=== PATIENT | male | born 2000 | race Caucasian/White ===

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

== ENCOUNTER 2019-03-01 10:10 | Inpatient (IN) | payer BC ==
[~2019-03-01] VITALS: Ht 172.7 cm; Wt 60.7 kg
[~2019-03-01 10:10] MED LIST: ACET500C5 PO; FAMO-96 PO; ONDA4TAB8 PO
[2019-03-01 10:13] VITALS: Ht 172.7 cm; Wt 60.7 kg
[2019-03-01] MEDS ORDERED: morphine 2 MG INJ IV STA ×2 (10:36→13:07)
[2019-03-01] MEDS ORDERED: ONDANSETRON 4 MG INJ IV STA (10:41)
[2019-03-01] MEDS ORDERED: ONDANSETRON 4 MG INJ ONE (10:45)
[2019-03-01] MEDS ORDERED: SODIUM CHLORIDE 0.9% 1L BAG IV* ONE (11:00)
[2019-03-01] MEDS ORDERED: IOHEXOL 300MG/ML 150 ML BTL ONE (11:28)
[2019-03-01] MEDS ORDERED: SOD CHLORIDE 0.9% 100 ML ONE (11:28)
--- NOTE | 2019-03-01 12:26 | ERD ---
ER Documentation Chief Complaint Chief Complaint RLQ ABD PAIN SINCE THIS MORNING HPI 19-year-old male presenting the ED for right lower abdominal pain. Patient was seen by his primary care provider Dr. Ulices Hopkins this morning and he sent him to the ER for suspicious of appendicitis. Patient is presenting to the ED 8 out of 10 pain he states he has not eaten anything since last night. He stated the pain woke him up in the middle the night as a sharp stabbing pain in his right lower quadrant. Patient states he feels nauseous. The patient denies any past medical history and this is first time this is never happened. ROS All systems reviewed and are negative except as per history of present illness. Medications Home Meds Active Scripts Ondansetron Hcl* (Zofran*) 4 Mg Tablet, 4 MG PO Q8H PRN for NAUSEA AND/OR VOMITING, #30 TAB Prov:PASILABAN,CHARUAR F 06/12/18 Acetaminophen* (Tylophen*) 500 Mg Capsule, 1 CAP PO Q6H PRN for PAIN AND OR ELEVATED TEMP, #20 CAP Prov:PASILABAN,CHARUAR F 06/12/18 Famotidine* (Pepcid*) 20 Mg Tablet, 20 MG PO DAILY for 30 Days, #30 TAB Prov:PASILABAN,KLAR F 06/12/18 Reported Medications [None] No Conflict Check 05/29/10 Allergies Allergies: Coded Allergies: No Known Allergies (Verified Allergy, Mild, 03/01/19) PMhx/Soc Medical and Surgical Hx: pt denies Medical Hx History of Surgery: No Anesthesia Reaction: No Hx Neurological Disorder: No Hx Respiratory Disorders: No Hx Cardiac Disorders: No Hx Psychiatric Problems: No Hx Miscellaneous Medical Probl: No Hx Alcohol Use: No Hx Substance Use: No Hx Tobacco Use: No Smoking Status: Never smoker FmHx Family History: No diabetes, No coronary disease, No other Physical Exam Vitals Vital Signs Date Temp Pulse Resp B/P (MAP) Pulse Ox O2 O2 Flow FiO2 Time Delivery Rate 03/01/19 98.0 77 18 123/87 99 10:13 (99) Physical Exam Const: No acute distress Head: Atraumatic Eyes: Normal Conjunctiva ENT: Normal External Ears, Nose and Mouth. Neck: Full range of motion. No meningismus. Resp: Clear to auscultation bilaterally Cardio: Regular rate and rhythm, no murmurs Abd: Tender to palpation in right lower quadrant, positive McBurney's sign, normal bowel sounds, no bruising, skin discoloration, or palpable masses Result Diagram: 03/01/19 1050 03/01/19 1050 Results 24 hrs Laboratory Tests Test 03/01/19 10:50 White Blood Count 17.0 10^3/ul Red Blood Count 5.00 10^6/ul Hemoglobin 15.0 g/dl Hematocrit 43.3 % Mean Corpuscular Volume 86.6 fl Mean Corpuscular Hemoglobin 30.0 pg Mean Corpuscular Hemoglobin Concent 34.6 g/dl Red Cell Distribution Width 11.9 % Platelet Count 305 10^3/UL Mean Platelet Volume 9.3 fl Immature Granulocytes % 0.300 % Neutrophils % 89.1 % Lymphocytes % 5.6 % Monocytes % 4.8 % Eosinophils % 0.0 % Basophils % 0.2 % Nucleated Red Blood Cells % 0.0 /100WBC Immature Granulocytes # 0.050 10^3/ul Neutrophils # 15.1 10^3/ul Lymphocytes # 1.0 10^3/ul Monocytes # 0.8 10^3/ul Eosinophils # 0.0 10^3/ul Basophils # 0.0 10^3/ul Nucleated Red Blood Cells # 0.0 10^3/ul Urine Color YELLOW Urine Clarity CLEAR Urine pH 7.0 Urine Specific [place] 1.023 Urine Ketones TRACE mg/dL Urine Nitrite NEGATIVE mg/dL Urine Bilirubin NEGATIVE mg/dL Urine Urobilinogen NEGATIVE mg/dL Urine Leukocyte Esterase NEGATIVE Lottie/ul Urine Hemoglobin NEGATIVE mg/dL Urine Glucose NEGATIVE mg/dL Urine Total Protein NEGATIVE mg/dl Sodium Level 141 mmol/L Potassium Level 4.1 mmol/L Chloride Level 102 mmol/L Carbon Dioxide Level 28 mmol/L Anion Gap 11 Blood Urea Nitrogen 12 mg/dl Creatinine 0.80 mg/dl Est Glomerular Filtrat Rate mL/min > 60 mL/min Glucose Level 138 mg/dl Calcium Level 10.5 mg/dl Current Medications Medications Dose Sig/Geo Start Time Status Last (Trade) Ordered Route PRN Stop Time Admin Dose Reason Admin Morphine 2 mg ONCE STAT 03/01/19 DC 03/01/19 Sulfate IV 10:36 10:47 (morphine) 03/01/19 10:40 Sodium 1,220 ml ONCE ONCE 03/01/19 DC 03/01/19 Chloride IV* 11:00 10:47 (NS) 03/01/19 11:01 Ondansetron 2 mg ONCE STAT 03/01/19 DC 03/01/19 HCl (Zofran IV 10:41 10:53 Inj) 03/01/19 10:53 Ondansetron 4 mg STK-MED 03/01/19 DC HCl (Zofran ONCE .ROUTE 10:45 Inj) 03/01/19 10:46 IV Flush 10 ml STK-MED 03/01/19 DC 03/01/19 (NS 10 ml) ONCE .ROUTE 11:28 11:31 03/01/19 11:29 Sodium 100 ml @ ud STK-MED 03/01/19 DC 03/01/19 Chloride ONCE .ROUTE 11:28 11:32 03/01/19 11:29 Iohexol 150 ml STK-MED 03/01/19 DC 03/01/19 (Omnipaque ONCE .ROUTE 11:28 11:32 300mg/ ml) 03/01/19 11:29 Piperacillin 100 ml @ ONCE ONCE 03/01/19 DC 03/01/19 Sod/ 200 mls/hr IVPB 12:30 12:33 Tazobactam 03/01/19 12:59 Sod Morphine 2 mg ONCE STAT 03/01/19 DC 03/01/19 Sulfate IV 13:07 13:12 (morphine) 03/01/19 13:08 Sodium 1,000 ml @ Q10H IV 03/01/19 03/01/19 Chloride 100 mls/hr 13:46 14:30 IV Flush 3 ml PER 03/01/19 (NS 3 ml) PROTOCOL IV 14:00 Ondansetron 4 mg Q6H PRN 03/01/19 HCl (Zofran IV 14:00 Inj) NAUSEA/VOMITI NG 650 mg Q6H PRN 03/01/19 Acetaminophen PO .PAIN 1-3 14:00 (Tylenol OR TEMP Tab) 1 tab Q6H PRN 03/01/19 Acetaminophen PO .MOD PAIN 14:00 / 4-6 Hydrocodone Bitart ([place] (5/325)) 2 tab Q6H PRN 03/01/19 Acetaminophen PO .SEVERE 14:00 / PAIN 7-10 Hydrocodone Bitart ([place] (5/325)) Morphine 2 mg Q4H PRN 03/01/19 03/01/19 Sulfate IV .SEVERE 14:00 17:55 (morphine) PAIN 7-10 Cefazolin 50 ml @ Q8 IVPB 03/01/19 03/01/19 Sodium/ 100 mls/hr 14:00 14:40 Dextrose Procedures/MDM ED course: The patient was stable throughout the ED course. The patient and/or family informed of laboratory and diagnostic imaging results throughout the ED course. Diagnostic imaging: CT abdomen pelvis with contrast Read by radiologist Marry Dove, Physician PROCEDURE: CT Abdomen and Pelvis with contrast. CLINICAL INDICATION: Abdomen and pelvis pain. TECHNIQUE: CT scan of the abdomen and pelvis with contrast was performed. The patient was scanned following the uncomplicated intravenous administration of 100 ml of Omnipaque-300. Coronal and sagittal reformatted images were obtained from the axial source images. Images were reviewed on a high-resolution PACS workstation. Total exam DLP is 444 mGy-cm. CTDIvol is 8 mGy. One or more of the following dose reduction techniques were used: Automated exposure control, adjustment of the mA and/or kV according to patient size, use of iterative reconstruction technique. DICOM images are available. COMPARISON: None. FINDINGS: There is bilateral lung base atelectasis versus scarring. There is no pleural effusion. The liver is normal in size. There is hepatic steatosis. There is no focal hepatic lesion. The gallbladder and bile ducts are normal. The spleen is normal in size. There is no focal splenic lesion. Both adrenals are normal with no enlargement or mass. The pancreas is unremarkable with no mass or evidence of pancreatitis. Both kidneys demonstrate normal contrast enhancement. There is no renal mass or hydronephrosis. The abdominal aorta is not dilated. There is no retroperitoneal lymphadenopathy or mass. There is no pelvic lymphadenopathy or mass. The bladder and distal ureters are normal. There is a large dilated fluid filled appendix measuring up to 1.2 cm with associated surrounding fat stranding and hyperemia. There are several appendicoliths. The bowel and mesentery are normal. There is no free fluid or free gas. The osseous structures are unremarkable with no fracture or lytic lesion. IMPRESSION: Acute appendicitis with associated appendicoliths. Hepatic steatosis. No bowel obstruction. No pneumoperitoneum. These results were communicated at 12:07 p.m. on 03/01/2019 via the [facility] rad hot line. RPTAT: QQ Procedures: None Medications given in ER: Normal saline Morphine Zosyn Patient tolerated medication well with no adverse reactions. Patient reported improvement in pain. Medical decision making: Patient is 19-year-old male presenting to the ED for right lower quadrant pain. Patient was sent over by his primary care provider with concerns of appendicitis. Patient has right lower quadrant pain rates a 8 out of 10. Patient had positive McBurney's point tenderness on palpation. Patient CBC indicated leukocytosis, CT scan indicated acute appendicitis with associated appendicoliths. The patient was given a dose of morphine and Zosyn and the care was handed over to Dr. Culver and the patient is being admitted for appendicitis. Departure Diagnosis: Primary Impression: Appendicitis Appendicitis type: acute appendicitis Acute appendicitis type: unspecified acute appendicitis type Qualified Codes: K35.80 - Unspecified acute appendicitis Condition: ANTHONY Kim PA-C Mar 01, 2019 12:26
[2019-03-01] MEDS ORDERED: PIPER-TAZO 3.375 GM IV (PMX) 100 ML IVPB ONE (12:30)
[2019-03-01] MEDS ORDERED: ONDANSETRON 4 MG INJ IV PRN ×2 (14:00→14:30)
[2019-03-01] MEDS ORDERED: NACL 0.9% 3 ML SYG IV SCH (14:00)
[2019-03-01] MEDS ORDERED: ACETAMINOPHEN 325 MG TAB PO PRN ×2 (14:00→14:30)
[2019-03-01] MEDS ORDERED: HYDROCODONE/APAP (5/325) TAB PO PRN ×2 (14:00)
[2019-03-01] MEDS: SOD CHLORIDE 0.9% 1,000 ML IV SCH ×2 (14:30→23:46)
--- NOTE | 2019-03-01 14:33 | HP ---
Date/Time of Note Date/Time of Note DATE: 03/01/19 TIME: 14:12 Assessment/Plan VTE Prophylaxis Pharmacological prophylaxis: NA/contraindicated Pharm contraindication: low risk/ambulating Lines/Catheters IV [facility] Saline [facility] Assessment/Plan Hospital Course 1. Acute Appendicitis - As evident per CT abdomen - Surgeon consulted - continue on abx - continue IVF - Analgesics prn 2. Leukocytosis - secondary to #1 - on abx - antipyretics prn for fever - monitor trend Discussed POC with Dr. Glass Result Diagram: 03/01/19 1050 03/01/19 1050 Results 24hrs Laboratory Tests Test 03/01/19 10:50 White Blood Count 17.0 #H Red Blood Count 5.00 Hemoglobin 15.0 Hematocrit 43.3 Mean Corpuscular Volume 86.6 Mean Corpuscular Hemoglobin 30.0 Mean Corpuscular Hemoglobin Concent 34.6 Red Cell Distribution Width 11.9 Platelet Count 305 # Mean Platelet Volume 9.3 Immature Granulocytes % 0.300 Neutrophils % 89.1 H Lymphocytes % 5.6 L Monocytes % 4.8 Eosinophils % 0.0 Basophils % 0.2 Nucleated Red Blood Cells % 0.0 Immature Granulocytes # 0.050 H Neutrophils # 15.1 H Lymphocytes # 1.0 Monocytes # 0.8 Eosinophils # 0.0 Basophils # 0.0 Nucleated Red Blood Cells # 0.0 Urine Color YELLOW Urine Clarity CLEAR Urine pH 7.0 Urine Specific [place] 1.023 Urine Ketones TRACE A Urine Nitrite NEGATIVE Urine Bilirubin NEGATIVE Urine Urobilinogen NEGATIVE Urine Leukocyte Esterase NEGATIVE Urine Hemoglobin NEGATIVE Urine Glucose NEGATIVE Urine Total Protein NEGATIVE Sodium Level 141 Potassium Level 4.1 Chloride Level 102 Carbon Dioxide Level 28 Anion Gap 11 Blood Urea Nitrogen 12 Creatinine 0.80 Est Glomerular Filtrat Rate mL/min > 60 Glucose Level 138 Calcium Level 10.5 H HPI/ROS Admit Date/Time Admit Date/Time Hx of Present Illness This is a 19-year-old male with no reported past medical history who came to [facility] due to reports of abdominal pain. Patient did report that he ate dinner last night and with his normal state of health. He reportedly ate mSith's. He states that 2 in the morning he started to have epigastric pain that went down to his right lower abdominal quadrant. He started to have nausea and reported vomiting. No reported hematemesis. No diarrhea. Denies any fevers. As such she went to the hospital for further evaluation. He did abdominal CT scan that did show acute appendicitis with associated appendicoliths. No bowel obstruction. No pneumoperitoneum. Hepatic steatosis was seen. He did have a white blood cell count of 17.0. Afebrile at present. Patient did receive analgesic medication in the ER. Reports pain is 3-5 out of 10. Reports less pain. Noted with McBurney point tenderness. We will evaluate him for the aformentiond issues. ROS 12 point review of systems obtained entirely negative except as mentioned in the history of present illness PMH/Family/Social Past Medical History Medical/surgical history 1. Denies Medications Current Medications Sodium Chloride 1,000 ml @ 100 mls/hr Q10H IV ; Start 03/01/19 at 13:46; Status UNV IV Flush (NS 3 ml) 3 ml PER PROTOCOL IV ; Start 03/01/19 at 14:00; Status UNV Ondansetron HCl (Zofran Inj) 4 mg Q6H PRN IV NAUSEA/VOMITING; Start 03/01/19 at 14:00; Status UNV Acetaminophen (Tylenol Tab) 650 mg Q6H PRN PO .PAIN 1-3 OR TEMP; Start 03/01/19 at 14:00; Status UNV Acetaminophen/ Hydrocodone Bitart ([place] (5/325)) 1 tab Q6H PRN PO .MOD PAIN 4- 6; Start 03/01/19 at 14:00; Status UNV Acetaminophen/ Hydrocodone Bitart ([place] (5/325)) 2 tab Q6H PRN PO .SEVERE PAIN 7-10; Start 03/01/19 at 14:00; Status UNV Morphine Sulfate (morphine) 2 mg Q4H PRN IV .SEVERE PAIN 7-10; Start 03/01/19 at 14:00; Status UNV Famotidine (Pepcid Iv) 20 mg Q12 IV ; Start 03/01/19 at 21:00; Status UNV Cefazolin Sodium/ Dextrose 50 ml @ 100 mls/hr Q8 IVPB ; Start 03/01/19 at 14:00; Status UNV Ondansetron HCl (Zofran Inj) 4 mg BRIDGE ORDER PRN IV NAUSEA/VOMITING; Start 03/01/19 at 14:30; Stop 03/02/19 at 14:29 Acetaminophen (Tylenol Tab) 650 mg ER BRIDGE PRN PO .MILD PAIN 1-3 OR TEMP; Start 03/01/19 at 14:30; Stop 03/02/19 at 14:29 Coded Allergies: No Known Allergies (Verified Allergy, Mild, 03/01/19) Family History Significant Family History: other (History of appendicitis on mother side) Social History Alcohol Use: none Smoking Status: Never smoker Drug Use: none Exam/Review of Systems Vital Signs Vitals Vital Signs Date Temp Pulse Resp B/P (MAP) Pulse Ox O2 O2 Flow FiO2 Time Delivery Rate 03/01/19 98.0 77 18 123/87 99 10:13 (99) Exam Constitutional: alert, oriented Psych: nl mood/affect Head: normocephalic Neck: supple, non-tender Respiratory: clear to auscultation Cardiovascular: regular rate and rhythm Gastrointestinal: soft, tender Musculoskeletal: nl extremities to inspection Neurological: [employer] II-XII intact, nl mental status, nl speech REGIDORMELISSA NP Mar 01, 2019 14:22
[2019-03-01] MEDS: CEFAZOLIN 2 GM/50 ML (PMX) 50 ML IVPB SCH ×2 (14:40→22:44)
[2019-03-01 14:45] VITALS: BP 117/57; PULSE 83; RESP 16
[2019-03-01] MEDS: morphine 2 MG INJ IV PRN ×2 (17:55→22:25)
[2019-03-01 19:58] VITALS: BP 117/55; PULSE 113; RESP 19
[2019-03-01] MEDS: FAMOTIDINE 20 MG INJ IV SCH (21:29)
[2019-03-02] VITALS (24 sets, daily range): BP systolic 104–124; BP diastolic 45–72; PULSE 74–112; RESP 14–19
[2019-03-02] MEDS ORDERED: ACETAMINOPHEN 1000MG/100ML IV 100 ML IVPB ONE
--- NOTE | 2019-03-02 00:28 | CONS ---
Assessment/Plan Assessment/Plan Assessment/Plan (Daily) Signs and symptoms consistent with acute appendicitis without evidence of abscess or rupture her graph recommendation keep patient n.p.o. IV fluids IV antibiotics. Recommendation for urgent laparoscopic appendectomy soon as or time can be arranged. If or time cannot be arranged tonight then we will proceed tomorrow. If surgery is tomorrow Dr. Coombs will assume care. Consultation Date/Type/Reason Admit Date/Time Date of Consultation: Mar 01, 2019 Type of Consult General surgery Reason for Consultation Abdominal pain suspicious for appendicitis Requesting Provider: MELISSA WHEATLEY NP Date/Time of Note DATE: 03/02/19 TIME: 00:22 Hx of Present Illness Patient presented to the emergency room after acute onset of abdominal pain at 2:00 in the morning patient denies any similar symptoms to this in the past. He had periumbilical epigastric and right lower quadrant abdominal pain which increased over the ensuing several hours In the ER evaluation with imaging evaluation and physical and labs revealed white blood cell count of 17,000 CAT scan consistent with appendicitis with a 1.2 cm appendix with multiple appendicoliths. No evidence of abscess . Patient denies any other significant past medical or surgical history Past Medical History Home Meds Active Scripts Ondansetron Hcl* (Zofran*) 4 Mg Tablet, 4 MG PO Q8H PRN for NAUSEA AND/OR VOMITING, #30 TAB Prov:KAROL FOSTER F 06/12/18 Acetaminophen* (Tylophen*) 500 Mg Capsule, 1 CAP PO Q6H PRN for PAIN AND OR ELEVATED TEMP, #20 CAP Prov:KAROL FOSTER F 06/12/18 Famotidine* (Pepcid*) 20 Mg Tablet, 20 MG PO DAILY for 30 Days, #30 TAB Prov:CHARU FOSTERAR F 06/12/18 Reported Medications [None] No Conflict Check 05/29/10 Medications Current Medications Sodium Chloride 1,000 ml @ 100 mls/hr Q10H IV Last administered on 03/01/19at 14:30; Admin Dose 100 MLS/HR; Start 03/01/19 at 13:46 IV Flush (NS 3 ml) 3 ml PER PROTOCOL IV ; Start 03/01/19 at 14:00 Ondansetron HCl (Zofran Inj) 4 mg Q6H PRN IV NAUSEA/VOMITING; Start 03/01/19 at 14:00 Acetaminophen (Tylenol Tab) 650 mg Q6H PRN PO .PAIN 1-3 OR TEMP; Start 03/01/19 at 14:00 Acetaminophen/ Hydrocodone Bitart ([place] (5/325)) 1 tab Q6H PRN PO .MOD PAIN 4- 6; Start 03/01/19 at 14:00 Acetaminophen/ Hydrocodone Bitart ([place] (5/325)) 2 tab Q6H PRN PO .SEVERE PAIN 7-10; Start 03/01/19 at 14:00 Morphine Sulfate (morphine) 2 mg Q4H PRN IV .SEVERE PAIN 7-10 Last administered on 03/01/19at 22:25; Admin Dose 2 MG; Start 03/01/19 at 14:00 Famotidine (Pepcid Iv) 20 mg Q12 IV Last administered on 03/01/19at 21:29; Admin Dose 20 MG; Start 03/01/19 at 21:00 Cefazolin Sodium/ Dextrose 50 ml @ 100 mls/hr Q8 IVPB Last administered on 03/01/19at 22:44; Admin Dose 100 MLS/HR; Start 03/01/19 at 14:00 Allergies: Coded Allergies: No Known Allergies (Verified Allergy, Mild, 03/01/19) Social History Alcohol Use: none Smoking Status: Never smoker Drug Use: none Exam/Review of Systems Exam Vitals Vital Signs Date Temp Pulse Resp B/P (MAP) Pulse Ox O2 O2 Flow FiO2 Time Delivery Rate 03/01/19 100.2 113 19 117/55 95 19:58 (75) 03/01/19 Room Air 14:37 Intake and Output 03/01/19 03/01/19 03/02/19 1414:59 22:59 06:59 IntakeIntake Total 2540 ml 450 ml BalanceBalance 2540 ml 450 ml Exam Patient complaining of right lower quadrant abdominal pain which is worsened over the previous several hours lungs clear to auscultation. Heart regular rate and rhythm normal S1-S2 Abdomen soft nondistended marked tenderness right lower quadrant Results Result Diagram: 03/01/19 1050 03/01/19 1050 Results 24hrs Laboratory Tests Test 03/01/19 10:50 White Blood Count 17.0 #H Red Blood Count 5.00 Hemoglobin 15.0 Hematocrit 43.3 Mean Corpuscular Volume 86.6 Mean Corpuscular Hemoglobin 30.0 Mean Corpuscular Hemoglobin Concent 34.6 Red Cell Distribution Width 11.9 Platelet Count 305 # Mean Platelet Volume 9.3 Immature Granulocytes % 0.300 Neutrophils % 89.1 H Lymphocytes % 5.6 L Monocytes % 4.8 Eosinophils % 0.0 Basophils % 0.2 Nucleated Red Blood Cells % 0.0 Immature Granulocytes # 0.050 H Neutrophils # 15.1 H Lymphocytes # 1.0 Monocytes # 0.8 Eosinophils # 0.0 Basophils # 0.0 Nucleated Red Blood Cells # 0.0 Urine Color YELLOW Urine Clarity CLEAR Urine pH 7.0 Urine Specific [place] 1.023 Urine Ketones TRACE A Urine Nitrite NEGATIVE Urine Bilirubin NEGATIVE Urine Urobilinogen NEGATIVE Urine Leukocyte Esterase NEGATIVE Urine Hemoglobin NEGATIVE Urine Glucose NEGATIVE Urine Total Protein NEGATIVE Sodium Level 141 Potassium Level 4.1 Chloride Level 102 Carbon Dioxide Level 28 Anion Gap 11 Blood Urea Nitrogen 12 Creatinine 0.80 Est Glomerular Filtrat Rate mL/min > 60 Glucose Level 138 Calcium Level 10.5 H Medications Medication Current Medications Sodium Chloride 1,000 ml @ 100 mls/hr Q10H IV Last administered on 03/01/19at 14:30; Admin Dose 100 MLS/HR; Start 03/01/19 at 13:46 IV Flush (NS 3 ml) 3 ml PER PROTOCOL IV ; Start 03/01/19 at 14:00 Ondansetron HCl (Zofran Inj) 4 mg Q6H PRN IV NAUSEA/VOMITING; Start 03/01/19 at 14:00 Acetaminophen (Tylenol Tab) 650 mg Q6H PRN PO .PAIN 1-3 OR TEMP; Start 03/01/19 at 14:00 Acetaminophen/ Hydrocodone Bitart ([place] (5/325)) 1 tab Q6H PRN PO .MOD PAIN 4- 6; Start 03/01/19 at 14:00 Acetaminophen/ Hydrocodone Bitart ([place] (5/325)) 2 tab Q6H PRN PO .SEVERE PAIN 7-10; Start 03/01/19 at 14:00 Morphine Sulfate (morphine) 2 mg Q4H PRN IV .SEVERE PAIN 7-10 Last administered on 03/01/19at 22:25; Admin Dose 2 MG; Start 03/01/19 at 14:00 Famotidine (Pepcid Iv) 20 mg Q12 IV Last administered on 03/01/19at 21:29; Admin Dose 20 MG; Start 03/01/19 at 21:00 Cefazolin Sodium/ Dextrose 50 ml @ 100 mls/hr Q8 IVPB Last administered on 03/01/19at 22:44; Admin Dose 100 MLS/HR; Start 03/01/19 at 14:00 SIERRA WHITLEY MD Mar 02, 2019 00:28
[2019-03-02] MEDS: SOD CHLORIDE 0.9% 1,000 ML IV SCH ×2 (01:37→09:46)
[2019-03-02] MEDS: CEFAZOLIN 2 GM/50 ML (PMX) 50 ML IVPB SCH ×2 (06:09→15:36)
--- NOTE | 2019-03-02 08:33 | PREAC ---
Date/Time of Note Date/Time of Note DATE: 03/02/19 TIME: 08:32 Anesthesia Eval and Record Evaluation Time Pre-Procedure Interview DATE: 03/02/19 TIME: 08:32 Age 19 Sex male NPO: 8 hrs Preoperative diagnosis acute appendicitis Planned procedure laparoscopic appendectomy Past Medical History Past Medical History: None Surgery & Anesthesia Issues No known issue Meds Anticoagulation: No Beta Wanda within 24 hr: No Reason Beta Wanda not given: Pt. not on B-Wanda Active Scripts Ondansetron Hcl* (Zofran*) 4 Mg Tablet, 4 MG PO Q8H PRN for NAUSEA AND/OR VOMITING, #30 TAB Prov:KINILABANKAROL F 06/12/18 Acetaminophen* (Tylophen*) 500 Mg Capsule, 1 CAP PO Q6H PRN for PAIN AND OR ELEVATED TEMP, #20 CAP Prov:KINILABANKAROL F 06/12/18 Famotidine* (Pepcid*) 20 Mg Tablet, 20 MG PO DAILY for 30 Days, #30 TAB Prov:KAROL FOSTER F 06/12/18 Reported Medications [None] No Conflict Check 05/29/10 Current Medications Sodium Chloride 1,000 ml @ 100 mls/hr Q10H IV Last administered on 03/02/19at 01:37; Admin Dose 100 MLS/HR; Start 03/01/19 at 13:46 IV Flush (NS 3 ml) 3 ml PER PROTOCOL IV ; Start 03/01/19 at 14:00 Ondansetron HCl (Zofran Inj) 4 mg Q6H PRN IV NAUSEA/VOMITING; Start 03/01/19 at 14:00 Acetaminophen (Tylenol Tab) 650 mg Q6H PRN PO .PAIN 1-3 OR TEMP; Start 03/01/19 at 14:00 Acetaminophen/ Hydrocodone Bitart ([place] (5/325)) 1 tab Q6H PRN PO .MOD PAIN 4- 6; Start 03/01/19 at 14:00 Acetaminophen/ Hydrocodone Bitart ([place] (5/325)) 2 tab Q6H PRN PO .SEVERE PAIN 7-10; Start 03/01/19 at 14:00 Morphine Sulfate (morphine) 2 mg Q4H PRN IV .SEVERE PAIN 7-10 Last administered on 03/01/19at 22:25; Admin Dose 2 MG; Start 03/01/19 at 14:00 Famotidine (Pepcid Iv) 20 mg Q12 IV Last administered on 03/01/19at 21:29; Admin Dose 20 MG; Start 03/01/19 at 21:00 Cefazolin Sodium/ Dextrose 50 ml @ 100 mls/hr Q8 IVPB Last administered on 03/02/19at 06:09; Admin Dose 100 MLS/HR; Start 03/01/19 at 14:00 Meds reviewed: Yes Allergies Coded Allergies: No Known Allergies (Verified Allergy, Mild, 03/01/19) Allergies Reviewed: Yes Labs/Studies Labs Reviewed: Reviewed by anesthesiologist Result Diagram: 03/02/19 02103/02/19 021 Laboratory Tests 03/02/19 02:10 test: N/A Pre-procedure Exam Last vitals Vital Signs Date Temp Pulse Resp B/P (MAP) Pulse Ox O2 O2 Flow FiO2 Time Delivery Rate 03/02/19 98.6 94 16 115/61 100 08:00 (79) 03/02/19 Room Air 01:01 Airway: Adequate mouth opening, Adequate thyromental dist Mallampati: Mallampati II Teeth: Normal Lung: Normal Heart: Normal ASA Physical Status ASA physical status: 2 Emergency: None Planned Anesthetic General/MAC: ETT Nerve block: TAP (bilateral) Planned Pain Management Parenteral pain med, Local by surgeon Pre-operative Attestations Prior to commencing anesthesia and surgery, the patient was re-evaluated, there was verification of: *The patient's identity *The results of appropriate recent lab work and preoperative vital signs *The above evaluation not changing prior to induction *Anesthetic plan, risk benefits, alternative and complications discussed with patient/family; questions answered; patient/family understands, accepts and wishes to proceed. FAB DORADO MD Mar 02, 2019 08:33
[2019-03-02] MEDS ORDERED: MAGNESIUM SULFATE 3 GM in DEXTROSE 5% 100 ML IVPB ONE (09:00)
--- NOTE | 2019-03-02 09:09 | PN ---
Date/Time of Note Date/Time of Note DATE: 03/02/19 TIME: 09:07 Assessment/Plan VTE Prophylaxis SCD applied (from Nsg): No SCD contraindicated: low risk/ambulating Pharmacological prophylaxis: NA/contraindicated Pharm contraindication: low risk/ambulating Lines/Catheters IV C[facility]ter Type (from [facility]): Peripheral IV Assessment/Plan Hospital Course 1. Acute Appendicitis - As evident per CT abdomen - Surgeon consulted - continue on abx - continue IVF - Analgesics prn - Plan for surgery today 2. Leukocytosis - secondary to #1 - on abx - antipyretics prn for fever - monitor trend Disposition and plan. Still noted with right lower abdominal pain. Continue with antibiotics. Plan for appendectomy today. Follow-up with surgeon recommendations. Monitor in-house. Discussed POC with Dr. Glass Result Diagram: 03/02/190 03/02/19 0210 Results 24hrs Laboratory Tests Test 03/01/19 10:50 03/02/19 02:10 White Blood Count 17.0 #H 21.6 #H Red Blood Count 5.00 4.32 L Hemoglobin 15.0 13.2 L Hematocrit 43.3 37.6 L Mean Corpuscular Volume 86.6 87.0 Mean Corpuscular Hemoglobin 30.0 30.6 Mean Corpuscular Hemoglobin Concent 34.6 35.1 Red Cell Distribution Width 11.9 12.0 Platelet Count 305 # 242 # Mean Platelet Volume 9.3 9.4 Immature Granulocytes % 0.300 0.700 H Neutrophils % 89.1 H 83.6 H Lymphocytes % 5.6 L 6.8 L Monocytes % 4.8 8.8 Eosinophils % 0.0 0.0 Basophils % 0.2 0.1 Nucleated Red Blood Cells % 0.0 0.0 Immature Granulocytes # 0.050 H 0.160 H Neutrophils # 15.1 H 18.0 H Lymphocytes # 1.0 1.5 Monocytes # 0.8 1.9 H Eosinophils # 0.0 0.0 Basophils # 0.0 0.0 Nucleated Red Blood Cells # 0.0 0.0 Urine Color YELLOW Urine Clarity CLEAR Urine pH 7.0 Urine Specific [place] 1.023 Urine Ketones TRACE A Urine Nitrite NEGATIVE Urine Bilirubin NEGATIVE Urine Urobilinogen NEGATIVE Urine Leukocyte Esterase NEGATIVE Urine Hemoglobin NEGATIVE Urine Glucose NEGATIVE Urine Total Protein NEGATIVE Sodium Level 141 139 Potassium Level 4.1 3.4 L Chloride Level 102 105 Carbon Dioxide Level 28 24 Anion Gap 11 10 Blood Urea Nitrogen 12 10 Creatinine 0.80 0.73 Est Glomerular Filtrat Rate mL/min > 60 > 60 Glucose Level 138 116 Calcium Level 10.5 H 8.9 Hemoglobin A1c 5.2 Lactic Acid Level 0.9 Phosphorus Level 4.1 Magnesium Level 1.4 L Total Bilirubin 0.9 Direct Bilirubin 0.00 Indirect Bilirubin 0.9 Aspartate Amino Transf (AST/SGOT) 26 Alanine Aminotransferase (ALT/SGPT) 26 Alkaline Phosphatase 47 Total Protein 6.8 Albumin 3.7 Globulin 3.10 Albumin/Globulin Ratio 1.19 Triglycerides Level 39 Cholesterol Level 117 LDL Cholesterol, Calculated 66 HDL Cholesterol 43 Cholesterol/HDL Ratio 2.7 Thyroid Stimulating Hormone (TSH) 0.404 L Free Thyroxine Index 2.14 Thyroxine (T4) 5.6 Triiodothyronine (T3) Uptake 38.3 Subjective 24 Hr Interval Summary Free Text/Dictation patient reports pain on RLQ with movement. no further reports of nausea. 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 intact, nl mental status, nl speech Results Results 24hrs Laboratory Tests Test 03/01/19 10:50 03/02/19 02:10 White Blood Count 17.0 #H 21.6 #H Red Blood Count 5.00 4.32 L Hemoglobin 15.0 13.2 L Hematocrit 43.3 37.6 L Mean Corpuscular Volume 86.6 87.0 Mean Corpuscular Hemoglobin 30.0 30.6 Mean Corpuscular Hemoglobin Concent 34.6 35.1 Red Cell Distribution Width 11.9 12.0 Platelet Count 305 # 242 # Mean Platelet Volume 9.3 9.4 Immature Granulocytes % 0.300 0.700 H Neutrophils % 89.1 H 83.6 H Lymphocytes % 5.6 L 6.8 L Monocytes % 4.8 8.8 Eosinophils % 0.0 0.0 Basophils % 0.2 0.1 Nucleated Red Blood Cells % 0.0 0.0 Immature Granulocytes # 0.050 H 0.160 H Neutrophils # 15.1 H 18.0 H Lymphocytes # 1.0 1.5 Monocytes # 0.8 1.9 H Eosinophils # 0.0 0.0 Basophils # 0.0 0.0 Nucleated Red Blood Cells # 0.0 0.0 Urine Color YELLOW Urine Clarity CLEAR Urine pH 7.0 Urine Specific [place] 1.023 Urine Ketones TRACE A Urine Nitrite NEGATIVE Urine Bilirubin NEGATIVE Urine Urobilinogen NEGATIVE Urine Leukocyte Esterase NEGATIVE Urine Hemoglobin NEGATIVE Urine Glucose NEGATIVE Urine Total Protein NEGATIVE Sodium Level 141 139 Potassium Level 4.1 3.4 L Chloride Level 102 105 Carbon Dioxide Level 28 24 Anion Gap 11 10 Blood Urea Nitrogen 12 10 Creatinine 0.80 0.73 Est Glomerular Filtrat Rate mL/min > 60 > 60 Glucose Level 138 116 Calcium Level 10.5 H 8.9 Hemoglobin A1c 5.2 Lactic Acid Level 0.9 Phosphorus Level 4.1 Magnesium Level 1.4 L Total Bilirubin 0.9 Direct Bilirubin 0.00 Indirect Bilirubin 0.9 Aspartate Amino Transf (AST/SGOT) 26 Alanine Aminotransferase (ALT/SGPT) 26 Alkaline Phosphatase 47 Total Protein 6.8 Albumin 3.7 Globulin 3.10 Albumin/Globulin Ratio 1.19 Triglycerides Level 39 Cholesterol Level 117 LDL Cholesterol, Calculated 66 HDL Cholesterol 43 Cholesterol/HDL Ratio 2.7 Thyroid Stimulating Hormone (TSH) 0.404 L Free Thyroxine Index 2.14 Thyroxine (T4) 5.6 Triiodothyronine (T3) Uptake 38.3 Medications Medication Current Medications Sodium Chloride 1,000 ml @ 100 mls/hr Q10H IV Last administered on 03/02/19at 01:37; Admin Dose 100 MLS/HR; Start 03/01/19 at 13:46 IV Flush (NS 3 ml) 3 ml PER PROTOCOL IV ; Start 03/01/19 at 14:00 Ondansetron HCl (Zofran Inj) 4 mg Q6H PRN IV NAUSEA/VOMITING; Start 03/01/19 at 14:00 Acetaminophen (Tylenol Tab) 650 mg Q6H PRN PO .PAIN 1-3 OR TEMP; Start 03/01/19 at 14:00 Acetaminophen/ Hydrocodone Bitart ([place] (5/325)) 1 tab Q6H PRN PO .MOD PAIN 4- 6; Start 03/01/19 at 14:00 Acetaminophen/ Hydrocodone Bitart ([place] (5/325)) 2 tab Q6H PRN PO .SEVERE PAIN 7-10; Start 03/01/19 at 14:00 Morphine Sulfate (morphine) 2 mg Q4H PRN IV .SEVERE PAIN 7-10 Last administered on 03/01/19at 22:25; Admin Dose 2 MG; Start 03/01/19 at 14:00 Famotidine (Pepcid Iv) 20 mg Q12 IV Last administered on 03/01/19at 21:29; Admin Dose 20 MG; Start 03/01/19 at 21:00 Cefazolin Sodium/ Dextrose 50 ml @ 100 mls/hr Q8 IVPB Last administered on 03/02/19at 06:09; Admin Dose 100 MLS/HR; Start 03/01/19 at 14:00 Magnesium Sulfate 3 gm/Dextrose 106 ml @ 35.333 mls/ hr ONCE ONCE IVPB ; Start 03/02/19 at 09:00; Stop 03/02/19 at 11:59 MELISSA WHEATLEY NP Mar 02, 2019 09:09
[2019-03-02] MEDS: FAMOTIDINE 20 MG INJ IV SCH ×2 (09:23→21:00)
[2019-03-02] MEDS ORDERED: BUPIVACAINE 0.25%/EPI (SDV) 30 ML INJ ONE (11:41)
[2019-03-02] MEDS ORDERED: PROPOFOL 20 ML ONE (11:49)
[2019-03-02] MEDS ORDERED: SUCCINYLCHOLINE CHLORIDE 100 MG/5 ML SYG IV ONE (11:49)
[2019-03-02] MEDS ORDERED: ROCURONIUM 50 MG INJ ONE (11:49)
[2019-03-02] MEDS ORDERED: MIDAZOLAM 1 MG/ML 2 ML INJ ONE (11:49)
[2019-03-02] MEDS ORDERED: LIDOCAINE 2% (SDV) 5 ML INJ ONE (11:49)
[2019-03-02] MEDS ORDERED: FENTAnyl 50 MCG/ML VIAL ONE (11:49)
[2019-03-02] MEDS ORDERED: ROPIVACAINE 0.5 % 30 ML VIAL ONE (11:50)
--- NOTE | 2019-03-02 11:56 | CONS ---
Assessment/Plan Assessment/Plan Assessment/Plan (Daily) Acute appendicitis Plan: Lap appendectomy, IV antibx, Fluids Consultation Date/Type/Reason Admit Date/Time Date of Consultation: Mar 02, 2019 Type of Consult Gen Surg Reason for Consultation Gen Surg consult covering for Dr. Christopher Fall overnight overflow Date/Time of Note DATE: 03/02/19 TIME: 11:49 Hx of Present Illness This is a 19-year-old male with no reported past medical history who came to [facility] due to reports of abdominal pain. Patient did report that he ate dinner last night and with his normal state of health. He reportedly ate [employer]. He states that 2 in the morning he started to have epigastric pain that went down to his right lower abdominal quadrant. He started to have nausea and reported vomiting. No reported hematemesis. No diarrhea. Denies any fevers. As such she went to the hospital for further evaluation. He did abdominal CT scan that did show acute appendicitis with associated appendicoliths. No bowel obstruction. No pneumoperitoneum. Hepatic steatosis was seen. He did have a white blood cell count of 17.0. Afebrile at present. Patient did receive analgesic medication in the ER. Reports pain is 3-5 out of 10. Reports less pain. Noted with McBurney point tenderness. We will evaluate him for the aformentiond issues. Past Medical History Home Meds Active Scripts Ondansetron Hcl* (Zofran*) 4 Mg Tablet, 4 MG PO Q8H PRN for NAUSEA AND/OR VOMIT ING, #30 TAB Prov:KAROL FOSTER F 06/12/18 Acetaminophen* (Tylophen*) 500 Mg Capsule, 1 CAP PO Q6H PRN for PAIN AND OR ELEVATED TEMP, #20 CAP Prov:PASILABANCHARUAR F 06/12/18 Famotidine* (Pepcid*) 20 Mg Tablet, 20 MG PO DAILY for 30 Days, #30 TAB Prov:CHARU FOSTERAR F 06/12/18 Reported Medications [None] No Conflict Check 05/29/10 Medications Current Medications Sodium Chloride 1,000 ml @ 100 mls/hr Q10H IV Last administered on 03/02/19at 01:37; Admin Dose 100 MLS/HR; Start 03/01/19 at 13:46 IV Flush (NS 3 ml) 3 ml PER PROTOCOL IV ; Start 03/01/19 at 14:00 Ondansetron HCl (Zofran Inj) 4 mg Q6H PRN IV NAUSEA/VOMITING; Start 03/01/19 at 14:00 Acetaminophen (Tylenol Tab) 650 mg Q6H PRN PO .PAIN 1-3 OR TEMP; Start 03/01/19 at 14:00 Acetaminophen/ Hydrocodone Bitart ([place] (5/325)) 1 tab Q6H PRN PO .MOD PAIN 4- 6; Start 03/01/19 at 14:00 Acetaminophen/ Hydrocodone Bitart ([place] (5/325)) 2 tab Q6H PRN PO .SEVERE PAIN 7-10; Start 03/01/19 at 14:00 Morphine Sulfate (morphine) 2 mg Q4H PRN IV .SEVERE PAIN 7-10 Last administered on 03/01/19at 22:25; Admin Dose 2 MG; Start 03/01/19 at 14:00 Famotidine (Pepcid Iv) 20 mg Q12 IV Last administered on 03/02/19at 09:23; Admin Dose 20 MG; Start 03/01/19 at 21:00 Cefazolin Sodium/ Dextrose 50 ml @ 100 mls/hr Q8 IVPB Last administered on 03/02/19at 06:09; Admin Dose 100 MLS/HR; Start 03/01/19 at 14:00 Magnesium Sulfate 3 gm/Dextrose 106 ml @ 35.333 mls/ hr ONCE ONCE IVPB Last administered on 03/02/19at 09:58; Admin Dose 35.333 MLS/HR; Start 03/02/19 at 09:00; Stop 03/02/19 at 11:59 Allergies: Coded Allergies: No Known Allergies (Verified Allergy, Mild, 03/01/19) Social History Alcohol Use: none Smoking Status: Never smoker Drug Use: none Exam/Review of Systems Exam Vitals Vital Signs Date Temp Pulse Resp B/P (MAP) Pulse Ox O2 O2 Flow FiO2 Time Delivery Rate 03/02/19 98.6 94 16 115/61 100 08:00 (79) 03/02/19 Room Air 01:01 Intake and Output 03/01/19 03/01/19 03/02/19 1515:00 23:00 07:00 IntakeIntake Total 2540 ml 450 ml 1050 ml BalanceBalance 2540 ml 450 ml 1050 ml Results Result Diagram: 03/02/19 0210 03/02/19 0210 Results 24hrs Laboratory Tests Test 03/02/19 02:10 White Blood Count 21.6 #H Red Blood Count 4.32 L Hemoglobin 13.2 L Hematocrit 37.6 L Mean Corpuscular Volume 87.0 Mean Corpuscular Hemoglobin 30.6 Mean Corpuscular Hemoglobin Concent 35.1 Red Cell Distribution Width 12.0 Platelet Count 242 # Mean Platelet Volume 9.4 Immature Granulocytes % 0.700 H Neutrophils % 83.6 H Lymphocytes % 6.8 L Monocytes % 8.8 Eosinophils % 0.0 Basophils % 0.1 Nucleated Red Blood Cells % 0.0 Immature Granulocytes # 0.160 H Neutrophils # 18.0 H Lymphocytes # 1.5 Monocytes # 1.9 H Eosinophils # 0.0 Basophils # 0.0 Nucleated Red Blood Cells # 0.0 Sodium Level 139 Potassium Level 3.4 L Chloride Level 105 Carbon Dioxide Level 24 Anion Gap 10 Blood Urea Nitrogen 10 Creatinine 0.73 Est Glomerular Filtrat Rate mL/min > 60 Glucose Level 116 Hemoglobin A1c 5.2 Lactic Acid Level 0.9 Calcium Level 8.9 Phosphorus Level 4.1 Magnesium Level 1.4 L Total Bilirubin 0.9 Direct Bilirubin 0.00 Indirect Bilirubin 0.9 Aspartate Amino Transf (AST/SGOT) 26 Alanine Aminotransferase (ALT/SGPT) 26 Alkaline Phosphatase 47 Total Protein 6.8 Albumin 3.7 Globulin 3.10 Albumin/Globulin Ratio 1.19 Triglycerides Level 39 Cholesterol Level 117 LDL Cholesterol, Calculated 66 HDL Cholesterol 43 Cholesterol/HDL Ratio 2.7 Thyroid Stimulating Hormone (TSH) 0.404 L Free Thyroxine Index 2.14 Thyroxine (T4) 5.6 Triiodothyronine (T3) Uptake 38.3 Medications Medication Current Medications Sodium Chloride 1,000 ml @ 100 mls/hr Q10H IV Last administered on 03/02/19at 01:37; Admin Dose 100 MLS/HR; Start 03/01/19 at 13:46 IV Flush (NS 3 ml) 3 ml PER PROTOCOL IV ; Start 03/01/19 at 14:00 Ondansetron HCl (Zofran Inj) 4 mg Q6H PRN IV NAUSEA/VOMITING; Start 03/01/19 at 14:00 Acetaminophen (Tylenol Tab) 650 mg Q6H PRN PO .PAIN 1-3 OR TEMP; Start 03/01/19 at 14:00 Acetaminophen/ Hydrocodone Bitart ([place] (5/325)) 1 tab Q6H PRN PO .MOD PAIN 4- 6; Start 03/01/19 at 14:00 Acetaminophen/ Hydrocodone Bitart ([place] (5/325)) 2 tab Q6H PRN PO .SEVERE PAIN 7-10; Start 03/01/19 at 14:00 Morphine Sulfate (morphine) 2 mg Q4H PRN IV .SEVERE PAIN 7-10 Last administered on 03/01/19at 22:25; Admin Dose 2 MG; Start 03/01/19 at 14:00 Famotidine (Pepcid Iv) 20 mg Q12 IV Last administered on 03/02/19at 09:23; Admin Dose 20 MG; Start 03/01/19 at 21:00 Cefazolin Sodium/ Dextrose 50 ml @ 100 mls/hr Q8 IVPB Last administered on 03/02/19at 06:09; Admin Dose 100 MLS/HR; Start 03/01/19 at 14:00 Magnesium Sulfate 3 gm/Dextrose 106 ml @ 35.333 mls/ hr ONCE ONCE IVPB Last administered on 03/02/19at 09:58; Admin Dose 35.333 MLS/HR; Start 03/02/19 at 09:00; Stop 03/02/19 at 11:59 MARIO ALBERTO GALLO MD Mar 02, 2019 11:55
[2019-03-02] MEDS ORDERED: FAMOTIDINE 20 MG INJ ONE (12:24)
[2019-03-02] MEDS ORDERED: ONDANSETRON 4 MG INJ ONE (12:24)
[2019-03-02] MEDS ORDERED: DEXAMETHASONE 4 MG/ML 5 ML INJ ONE (12:24)
[2019-03-02] MEDS ORDERED: CEFAZOLIN 1 GM INJ ONE (12:24)
[2019-03-02] MEDS ORDERED: FENTAnyl 50 MCG/ML VIAL IV PRN (12:30)
[2019-03-02] MEDS ORDERED: PROCHLORPERAZINE 10 MG INJ IV PRN (12:30)
[2019-03-02] MEDS ORDERED: HYDROmorphONE 1 MG/5 ML IV SYRINGE IV PRN ×3 (12:30)
[2019-03-02] MEDS ORDERED: DIPHENHYDRAMINE 50 MG INJ IV PRN ×2 (12:30→14:00)
[2019-03-02] MEDS ORDERED: MEPERIDINE 25 MG INJ IV PRN (12:30)
[2019-03-02] MEDS ORDERED: ONDANSETRON 4 MG INJ IV PRN ×2 (12:30→14:00)
[2019-03-02] MEDS ORDERED: OXYCODONE/ACETAMINOPHEN (5/325) TAB PO PRN (12:30)
[2019-03-02] MEDS ORDERED: KETOROLAC 30 MG INJ ONE (12:55)
[2019-03-02] MEDS ORDERED: PHENYLephrine (100 MCG/ML) 10ML SYG ONE (13:01)
[2019-03-02] MEDS ORDERED: HYDROmorphONE 2 MG/ML SYG ONE (13:03)
--- NOTE | 2019-03-02 13:28 | PAC ---
Date/Time of Note Date/Time of Note DATE: 03/02/19 TIME: 13:28 Post-Anesthesia Notes Post-Anesthesia Note Last documented vital signs Vital Signs Date Temp Pulse Resp B/P (MAP) Pulse Ox O2 O2 Flow FiO2 Time Delivery Rate 03/02/19 78 15 118/52 100 Mask 6.0 13:20 (74) 03/02/19 98.1 13:15 Activity: WNL Respiratory function: WNL Cardiovascular function: WNL Mental status: Baseline Pain reasonably controlled: Yes Hydration appropriate: Yes Nausea/Vomiting absent: Yes Comments BP: 106/50 HR: 76 RR: 15 T: 98.1 SaO2: 100% FAB DORADO MD Mar 02, 2019 13:28
--- NOTE | 2019-03-02 13:42 | SIPON ---
Date/Time of Note Date/Time of Note DATE: 03/02/19 TIME: 13:39 Operative Report Preoperative Diagnosis Acute appendicitis Postoperative Diagnosis Necrotic appendix Operation/Procedure Performed Laparoscopic appendectomy, TAP Surgeon Sotero Coombs MD. assistant paralegal none Anesthesia: general Estimated blood loss: minimal Transfusion Required none Specimen appendix Grafts/Implants none Complications none SOTERO COOMBS MD Mar 02, 2019 13:42
[2019-03-02] MEDS: LACTATED RINGER'S 1,000 ML IV SCH ×2 (13:43→23:43)
[2019-03-02] MEDS ORDERED: morphine 2 MG INJ IV PRN (14:00)
[2019-03-02] MEDS ORDERED: KETOROLAC 30 MG INJ IV PRN (14:00)
[2019-03-02] MEDS ORDERED: AMPICILLIN/SULB 3 GM/NS (PMX) 100 ML IVPB SCH ×2 (14:00→18:00)
[2019-03-02] MEDS ORDERED: HYDROCODONE/APAP (5/325) TAB PO PRN (14:00)
--- NOTE | 2019-03-02 16:36 | OPR ---
DATE OF OPERATION: 03/02/2019 PREOPERATIVE DIAGNOSIS: Acute appendicitis. POSTOPERATIVE DIAGNOSIS: Necrotic appendix. PROCEDURE PERFORMED: Laparoscopic appendectomy. COMPLICATIONS: None. ESTIMATED BLOOD LOSS: Minimal. HISTORY OF PRESENT ILLNESS: The patient is a 19-year-old male with acute onset of abdominal pain of 2 days' duration. The patient was seen in the ER and had a CT scan that confirmed appendicitis and a n elevated white count. Risks and benefits of the first surgery including risk of bleeding, infectio n, the risk of abscess was discussed with the patient. The patient consented, was brought to the OR for definitive operation. OPERATIVE NOTE: The patient was transferred to the OR, placed in supine position. Sequential compre ssion devices were applied to bilateral lower extremities. A preoperative antibiotics were administe red right prior to incision. The patient was sedated and intubated. Anterior abdominal wall was pre pped and draped in usual surgical fashion. A Verres needle with insufflation was achieved to her le ft upper quadrant stab incision point. After a proper timeout was completed by the operating room te am. A Veress needle was confirmed in positioning with a water drop test. Abdomen was insufflated wi th CO2 to approximately 15 mmHg. The Optiview trocar with a 0-degree scope was used to enter the per itoneal cavity through a left upper quadrant 5 mm incision site. Once inside the peritoneal cavity, a 12 mm incision was placed at the level of the umbilicus and a 12 mm trocar was used to enter the pe ritoneal cavity. Next, a 5 mm trocar was placed at the suprapubic area. The patient was placed in T rendelenburg position and airplaned towards the left side, opening up the right pericolic gutter. Th ere was a significant amount of inflammatory tissue including the right colon and appendix omentum al l inflamed and stuck together in the right lower quadrant requiring extensive adhesiolysis to release these tissues to allow for visualization of the appendix. Once the appendix was visualized, we care fully released it from the associated tissue. The base of the appendix was visualized and dissected free with a significant amount of inflammation. A window was opened in the mesentery of the base of the appendix. Next, stapler [place] 35 with multi thickness was used to fire across the mesentery di vided the mesentery followed by 1 firing across the base of the appendix. The appendix was placed in the EndoCatch bag and externalized. The base of the appendix had some bleeding requiring a strategi c clip placement at the base of the appendix, it should be noted that in order to visualize the base of the appendix, the right colon required mobilization and reflection medially by releasing the white line of Toldt on the right side. Irrigation was completed. Upon completion, hemostasis was ensured post-irrigation. The appendix was removed. The area was dry upon completion of the appendectomy. Dictated By: MARIO ALBERTO MCELROY/DAI Conf#: [id number] DID#: [id number] CC: KATHY MCKINNEY;*EndCC*
[2019-03-02] MEDS: AMPICILLIN/SULB 3 GM/NS (PMX) 100 ML IVPB SCH (18:26)
[2019-03-03] MEDS: AMPICILLIN/SULB 3 GM/NS (PMX) 100 ML IVPB SCH ×4 (00:55→17:48)
[2019-03-03] MEDS: LACTATED RINGER'S 1,000 ML IV SCH ×2 (01:57→09:43)
[2019-03-03 02:14] VITALS: BP 94/50; PULSE 71; RESP 16
[2019-03-03 07:31] VITALS: BP 111/59; PULSE 67; RESP 18
[2019-03-03] MEDS: FAMOTIDINE 20 MG INJ IV SCH (08:31)
[2019-03-03] MEDS ORDERED: AMOX1TAB10 PO (12:48)
[2019-03-03] MEDS ORDERED: HYDR-3601 PO (12:48)
--- NOTE | 2019-03-03 12:49 | PDOCDIS ---
Discharge Instructions DIAGNOSIS Discharge Diagnosis 1. Acute Appendicitis 2. Leukocytosis CONDITION [id number] Patient Condition: Erict2y Stable HOME CARE INSTRUCTIONS: [id number] Diet Instructions: [id number] Regular FOLLOW UP/APPOINTMENTS Follow-up Plan Follow up with Dr. Sotero Coombs in one week Office Address [address] [place] [address] Office MELISSA WHEATLEY NP Mar 03, 2019 12:49
[2019-03-03 13:56] VITALS: BP 116/55; PULSE 70; RESP 18
--- NOTE | 2019-03-07 12:30 | DS ---
Date/Time of Note Date/Time of Note DATE: 03/07/19 TIME: 12:26 Discharge Summary Admission/Discharge Info Admit Date/Time Mar 01, 2019 at 14:07 Discharge Date/Time Mar 03, 2019 at 18:40 Discharge Diagnosis 1. Acute Appendicitis 2. Leukocytosis Patient Condition: Stable Hospital Course This is a 19-year-old male with no reported past medical history who came to [facility] due to reports of abdominal pain. Patient did report that he ate dinner last night and with his normal state of health. He reportedly ate [employer]. He states that 2 in the morning he started to have epigastric pain that went down to his right lower abdominal quadrant. He started to have nausea and reported vomiting. No reported hematemesis. No diarrhea. Denies any fevers. As such she went to the hospital for further evaluation. He did abdominal CT scan that did show acute appendicitis with associated appendicoliths. No bowel obstruction. No pneumoperitoneum. Hepatic steatosis was seen. He did have a white blood cell count of 17.0. Patient was seen by surgeon and did undergo laparoscopic appendectomy. He was also provided with antibiotics. He was also continued on analgesics and IVF. During his course of stay he did improve. He was provided antibiotics and analgesics upon d/c. He was advised for outpatient follow up with surgeon. On the day of discharge, patient was in stable condition. Discussed POC with Dr. Glass [facility] Active Scripts Amoxicillin/Potassium Clav (Amox-Clav 875-125 mg Tablet) 875-125 mg Tab, 1 TAB PO BID, #10 TAB Prov:MELISSA WHEATLEY PATIENT CARE PROVIDER 03/03/19 Hydrocodone Bit-Acetaminophen (Hydrocodone Bit-APAP) 5-325MG Tablet, 1 TAB PO Q6H PRN for PAIN LEVEL 6-10, #20 TAB Prov:MELISSA WHEATLEY PATIENT CARE PROVIDER 03/03/19 Ondansetron Hcl* (Zofran*) 4 Mg Tablet, 4 MG PO Q8H PRN for NAUSEA AND/OR VOMITING, #30 TAB Prov:KINILAKAROL DONATO F 06/12/18 Acetaminophen* (Tylophen*) 500 Mg Capsule, 1 CAP PO Q6H PRN for PAIN AND OR ELEVATED TEMP, #20 CAP Prov:PASILABANKAROL F 06/12/18 Famotidine* (Pepcid*) 20 Mg Tablet, 20 MG PO DAILY for 30 Days, #30 TAB Prov:KAROL FOSTER 06/12/18 Discontinued Reported Medications [None] No Conflict Check 05/29/10 Follow-up Plan Follow up with Dr. Sotero Coombs in one week Office Address [address] [place] [address] Office Primary Care Provider Ulices Beverly MD Time spent on discharge: > 30 minutes MELISSA WHEATLEY NP Mar 07, 2019 12:30
== END 2019-03-03 18:40 | disposition home or self-care (01) | DRG 343 ==
LOC: FTE 10:10 → 2NE 14:07
PROVIDERS: ADMIT Hospitalist; ATTEND Hospitalist
PROC: 0DTJ4ZZ Resection of Appendix, Percutaneous Endoscopic Approach (ICD-10-PCS; principal; 2019-03-02 10:30)
DX: K35.80 Unspecified acute appendicitis (principal)
CPT/HCPCS: 74177; 80048; 80053; 80061; 81003; 83036; 83605; 83735; 84100; 84436; 84443; 84479; 85025; 88304; 96374; 96375; 96376; J0131; J0295; J0690; J1100; J1170; J1885; J2250; J2270; J2370; J2405; J2543; J2795; J3010; J3475; J7030; J7120; Q9967